=== PATIENT | male | born 1995 | race Caucasian/White ===

== ENCOUNTER 2020-09-26 15:38 | Emergency (ER) | payer OTHER, BC ==
[~2020-09-26] VITALS: Ht 195.6 cm; Wt 90.7 kg
[2020-09-26] MEDS ORDERED: CONCERTA36 M1 PO (15:56)
[2020-09-26] MEDS ORDERED: GUANFACINE HCL2 MG PO (15:57)
[2020-09-26 16:57] LABS: ABSOLUTE BASOPHILS 0.1 thou/uL (0.0-0.2); ABSOLUTE LYMPHOCYTES 2.3 thou/uL (0.8-5.3); ABSOLUTE MONOCYTES 0.8 thou/uL (0.0-1.2); ABSOLUTE NEUTROPHILS 5.6 thou/uL (1.6-8.1); BASOPHILS 0.7 %; EOSINOPHILS 0.4 %; HEMATOCRIT 48.4 % (42.0-52.0); HEMOGLOBIN 16.6 gm/dL (14.0-18.0); LYMPHOCYTES 25.9 %; MCH 31.4 pg (26.0-34.0); MCHC 34.4 g/dL (28.0-37.0); MCV 91.5 fL (80.0-100.0); MONOCYTES 8.9 %; MPV 7.1 fl. (7.2-11.1); NUCLEATED RBCS 0 /100WBC; PLATELET COUNT* 241 thou/uL (150-400); POLYS 64.1 %; RBC 5.29 mil/uL (4.50-6.00); RDW-CV 12.7 % (10.5-14.5); WBC 8.7 thou/uL (4.0-11.0)
[2020-09-26 17:03] LABS: CALCIUM 9.3 mg/dL (8.5-10.1); CREATININE 1.2 mg/dL (0.6-1.3); POTASSIUM 3.7 mmol/L (3.5-5.1)
[2020-09-26 17:09] LABS: ALBUMIN 4.5 g/dL (3.4-5.0); TOTAL BILIRUBIN 0.3 mg/dL (<0.1-1.0); TOTAL PROTEIN 7.5 g/dL (6.4-8.2)
[2020-09-26 18:15] VITALS: BP 117/60
--- NOTE | 2020-09-27 13:14 | EKG ---
[place] [address] ELECTROCARDIOGRAM REPORT Name: JESUS ALBERTOBRANDY Reji Room: [facility]#: [id number] Admission: 09/26/20 Attend Phys: Discharge: 09/26/20 Date of : 89 Date of Service: 09/26/20 160 Report #: [id number] THIS REPORT FOR: //name// [facility] ED Test Date: 2020-09-26 Test Time: 16:03:11 Pat Name: BRANDY GRANDA Department: Room: Gender: Director Facilities Maintenance: [place] : 1995 Requested By: Joe Choe Order Number: [id number] MD: Felipe Aragon Measurements Intervals [place] Rate: 62 P: 39 MT: 139 QRS: 111 QRSD: 104 T: 53 QT: 397 QTc: 404 Interpretive Statements Sinus rhythm Right axis deviation No previous ECG available for comparison Electronically Signed On 09-27-2020 13:14:29 PC ANALYST by Felipe Aragon [email or web address] <ELECTRONICALLY SIGNED> By: Felipe Aragon MD, [facility] 09/27/20 1314 160 02 Felipe Aragon MD, FACC /EPI
== END 2020-09-26 18:16 | disposition home or self-care (01) ==
LOC: M.ERS 15:38
PROVIDERS: Nurse Practitioner Psychiatric/Mental Health
DX: Z77.098 Contact with and (suspected) exposure to other hazardous, chiefly nonmedicinal, chemicals (principal); I10 Essential (primary) hypertension; Z79.899 Other long term (current) drug therapy; Z88.1 Allergy status to other antibiotic agents